=== PATIENT | female | born 1980 | race Caucasian/White ===

== ENCOUNTER 2021-05-05 19:24 | Emergency (ER) | payer OTHER ==
[~2021-05-05] VITALS: Ht 165.1 cm; Wt 85.0 kg
[2021-05-05] MEDS ORDERED: IBUPROFEN 400MG TABLET PO ONE (23:00)
[2021-05-06] MEDS ORDERED: IBUP-2028 MT (00:45)
[2021-05-06 01:35] VITALS: BP 125/83
== END 2021-05-06 01:38 | disposition home or self-care (01) ==
LOC: ER 19:24
DX: S93.402A Sprain of unspecified ligament of left ankle, initial encounter (principal); Z98.890 Other specified postprocedural states; Z79.899 Other long term (current) drug therapy; X50.1XXA Overexertion from prolonged static or awkward postures, initial encounter; Y93.89 Activity, other specified; Y92.89 Other specified places as the place of occurrence of the external cause; Y99.8 Other external cause status
CPT/HCPCS: 73610; 81025; 99283